=== PATIENT | male | born 1990 | race Caucasian/White ===

== ENCOUNTER 2019-05-15 09:14 | Emergency (ER) | payer BC, OTHER ==
[2019-05-15 09:24] VITALS: BP 128/88; PULSE 82
[2019-05-15] MEDS ORDERED: Lidocaine 1% 10 ML MDV INJECT ONE (09:43)
[2019-05-15] MEDS ORDERED: Acetaminophen 325 MG Tab PO ONE (09:43)
--- NOTE | 2019-05-15 09:47 | EDM.PDOC ---
ED HPI GENERAL MEDICAL PROBLEM - General Chief Complaint: Laceration Stated Complaint: L PINKY LAC Time Seen by Provider: 05/15/19 09:40 Source of Information: Reports: Patient History Limitations: Reports: No Limitations - History of Present Illness INITIAL COMMENTS - FREE TEXT/NARRATIVE: patient is a 28-year-old male who presents with complaints of a laceration to his left lateral fifth finger. Patient states that he was picking up a piece of sheet-metal and it cut him. He states that he is up-to-date on his tetanus vaccination and that it has been less than 10 years. Left Finger-Little Pain Score (Numeric/FACES): 7 - Related Data Allergies Allergy/AdvReac Type Severity Reaction Status Date / Time No Known Allergies Allergy Verified 05/15/19 09:24 Home Meds: Home Meds Albuterol Sulfate [Proventil Hfa] 2 puff INH DAILY PRN 05/29/15 [History] Past Medical History HEENT History: Reports: None Other HEENT History: seasonal allergies Cardiovascular History: Reports: None Respiratory History: Reports: Asthma Other Respiratory History: seasonal allergies Gastrointestinal History: Reports: None Genitourinary History: Reports: None Musculoskeletal History: Reports: None Neurological History: Reports: None Psychiatric History: Reports: None Endocrine/Metabolic History: Reports: Obesity/BMI 30+ Hematologic History: Reports: None Immunologic History: Reports: None Oncologic (Cancer) History: Reports: None Dermatologic History: Reports: None - Infectious Disease History Infectious Disease History: Reports: None Social & Family History - Tobacco Use Smoking Status *Q: Current Every Day Smoker Years of Tobacco use: 10 Packs/Tins Daily: 0.5 - Caffeine Use Caffeine Use: Reports: Coffee, Energy Drinks, Soda - Recreational Drug Use Recreational Drug Use: No ED ROS GENERAL - Review of Systems Review Of Systems: See Below Constitutional: Reports: No Symptoms HEENT: Reports: No Symptoms Respiratory: Reports: No Symptoms Cardiovascular: Reports: No Symptoms Endocrine: Reports: No Symptoms GI/Abdominal: Reports: No Symptoms : Reports: No Symptoms Musculoskeletal: Reports: No Symptoms Skin: Reports: Wound (left 5th finger laceration) Neurological: Reports: No Symptoms Psychiatric: Reports: No Symptoms Hematologic/Lymphatic: Reports: No Symptoms Immunologic: Reports: No Symptoms ED EXAM, SKIN/RASH Exam: See Below Exam Limited By: No Limitations General Appearance: Alert, WD/WN, No Apparent Distress Respiratory/Chest: No Respiratory Distress, Lungs Clear, Normal Breath Sounds, No Accessory Muscle Use, Chest Non-Tender Cardiovascular: Normal Peripheral Pulses, Regular Rate, Rhythm, No Edema, No Murmur Extremities: Other Skin: Warm, Dry, Normal Color, Wound/Incision (1.5 cm irregular shaped laceration to volar left 5th finger just proximal to the DIP joint. Full ROM and strength present.) ED SKIN PROCEDURES - Laceration/Wound Repair Left Ventral Digit - 5th (Baby) Appearance: Subcutaneous Distal NVT: Neuro & Vascular Intact, No Tendon Injury Anesthetic Type: Local Local Anesthesia - Lidocaine (Xylocaine): 1% Plain Local Anesthetic Volume: 2cc Skin Prep: Providone-Iodine (Betadine), Saline, Sterile Drape Exploration/Debridement/Repair: Wound Explored, No Foreign Material Found Closed with: Sutures Lac/Wound length In cm: 1.5 Suture Size: 4-0 # of Sutures: 7 Suture Type: Nylon Sterile Dressing Applied: Nurse Tetanus Status Addressed: Yes Complications: No Progress/Comments: wound well approximated. Pt has full ROM and strength to extremity. Discharge instructions as documented. Course - Vital Signs Last Recorded V/S: Last Vital Signs Temp 97.6 F 05/15/19 09:22 Pulse 82 05/15/19 09:22 Resp 16 05/15/19 09:22 BP 128/88 05/15/19 09:22 Pulse Ox 100 05/15/19 09:22 - Orders/Labs/Meds Meds: Medications Discontinued Medications Generic Name Dose Route Start Last Admin Trade Name Alison PRN Reason Stop Dose Admin Acetaminophen 975 mg 05/15/19 09:43 05/15/19 09:47 Tylenol PO 05/15/19 09:44 975 mg NOW ONE Administration Lidocaine HCl 10 ml 05/15/19 09:43 05/15/19 09:48 Xylocaine 1% INJECT 05/15/19 09:44 10 ml ONETIME ONE Administration Departure - Departure Time of Disposition: 10:23 Disposition: Home, Self-Care 01 Condition: Good Clinical Impression: Laceration - Discharge Information *PRESCRIPTION DRUG MONITORING PROGRAM REVIEWED*: No *COPY OF PRESCRIPTION DRUG MONITORING REPORT IN PATIENT TEODORO: No Instructions: Laceration Care, Adult, [id number] Referrals: Rosa Maria Ramsay MD [Primary Care Provider] - Forms: ED Department Discharge Additional Instructions: You were seen in the emergency department for a 1.5 cm laceration to your left little finger. The wound was cleansed and closed with 7 sutures. The sutures should stay intact for 10 days. After that time they may be removed at either the [facility] or the [place] walk[facility]in [facility]. The wound should be kept clean and dry. Wash with regular soap and water twice daily and then pat dry. If there is a chance that the wound may become contaminated, cover it with a Band-Aid and antibiotic ointment. Otherwise it may be left open to air. Watch for signs of infection including redness, swelling, or purulent drainage. If these should occur please follow-up with your primary care provider or return to the emergency department.
== END 2019-05-15 10:40 | disposition home or self-care (01) ==
LOC: JD.ED 09:14
DX: S61.217A Laceration without foreign body of left little finger without damage to nail, initial encounter (principal); J45.909 Unspecified asthma, uncomplicated; E66.9 Obesity, unspecified; Z68.32 Body mass index [BMI] 32.0-32.9, adult; F17.210 Nicotine dependence, cigarettes, uncomplicated; Z79.899 Other long term (current) drug therapy; W26.8XXA Contact with other sharp object(s), not elsewhere classified, initial encounter
CPT/HCPCS: 12001; 99282; A9270; J2001

== ENCOUNTER 2022-03-13 14:28 | Emergency (ER) | payer OTHER ==
[2022-03-13 15:53] LABS: ESTIMATED GFR 83 mL/min (>60)
[2022-03-13] MEDS ORDERED: HYDROmorphone 0.5 MG/0.5 ML Syringe ONE (16:22)
[2022-03-15 11:03] VITALS: BP 195/111; PULSE 120
== END 2022-03-13 16:30 | disposition home or self-care (01) ==
LOC: JD.ED 14:28
DX: T22.231A Burn of second degree of right upper arm, initial encounter (principal); T22.232A Burn of second degree of left upper arm, initial encounter; T20.20XA Burn of second degree of head, face, and neck, unspecified site, initial encounter; T21.11XA Burn of first degree of chest wall, initial encounter
CPT/HCPCS: 36415; 80053; 85025; 96374; 99283; J1170

== ENCOUNTER 2023-03-20 17:11 | Emergency (ER) | payer OTHER ==
[2023-03-20 17:24] VITALS: BP 157/96; PULSE 97
[2023-03-20] MEDS ORDERED: Lidocaine 1% 10 ML MDV INJECT ONE (17:58)
== END 2023-03-20 19:47 | disposition home or self-care (01) ==
LOC: JD.ED 17:11
DX: S61.211A Laceration without foreign body of left index finger without damage to nail, initial encounter (principal); F17.210 Nicotine dependence, cigarettes, uncomplicated; J45.909 Unspecified asthma, uncomplicated; E66.9 Obesity, unspecified; Z68.32 Body mass index [BMI] 32.0-32.9, adult; X58.XXXA Exposure to other specified factors, initial encounter
CPT/HCPCS: 12001; 73140-26-F1; 73140-F1; 99282; 99283; J3490